=== PATIENT | female | born 1980 | race Caucasian/White ===

== ENCOUNTER 2019-07-11 06:01 | Inpatient (IN) | payer OTHER ==
[2019-07-11] MEDS ORDERED: ceFAZolin* 2 GM* ONE DOSE (Duplex) IVPB (07:00)
[2019-07-11] MEDS ORDERED: Carboprost Tromethamine* 250 MCG INJ ONE (07:24)
[2019-07-11] MEDS ORDERED: Sodium Citrate/Citric Acid* 15 ML UDC ONE (07:33)
[2019-07-11] MEDS ORDERED: Sterile Water for Inj* 10 ML ONE (07:55)
[2019-07-11] MEDS ORDERED: Morphine PF AMP (0.5MG/ML)* 5 MG/10 ML AMP ONE (07:55)
[2019-07-11] MEDS ORDERED: Witch Hazel PAD* JAR TOPICAL PRN (08:02)
[2019-07-11] MEDS ORDERED: Acetaminophen TAB* 325 MG PO PRN (08:02)
[2019-07-11] MEDS ORDERED: Glycerin ADULT SUPP PR PRN (08:02)
[2019-07-11] MEDS ORDERED: Zolpidem TAB* 5 MG PO PRN (08:02)
[2019-07-11] MEDS ORDERED: oxyCODONE/Acetamin 5/325 MG* TAB PO PRN ×3 (08:02→12:00)
[2019-07-11] MEDS ORDERED: Dibucaine 1% 28.35 GM TUBE PR PRN (08:02)
[2019-07-11] MEDS ORDERED: OXYTOCIN* 10 UNITS/ML 1 ML VIAL ONE (08:32)
[2019-07-11] MEDS ORDERED: Phenylephrine 40 MCG/ML SYRINGE ONE (08:32)
[2019-07-11] MEDS ORDERED: EPHEDrine (Pressors)* 50 MG/ML VIAL ONE (08:32)
[2019-07-11] MEDS ORDERED: Ketorolac INJ* 30 MG/ML 1 ML VIAL ONE (08:44)
[2019-07-11] MEDS ORDERED: Naloxone* 0.4 MG/ML 1 ML VIAL IV PRN ×3 (08:46→12:00)
[2019-07-11] MEDS ORDERED: fentaNYL* 50 MCG/ML 2 ML VIAL (100 MCG VIAL) IV PRN (08:46)
[2019-07-11] MEDS ORDERED: oxyCODONE TAB* 5 MG TAB PO PRN (08:46)
[2019-07-11] MEDS ORDERED: DiMENhydriNATE IV* 50 MG/ML VIAL IV PUSH PRN (08:46)
[2019-07-11] MEDS ORDERED: HYDROmorphone INJ* 0.5 MG/0.5 ML SYRINGE IV PRN (08:46)
[2019-07-11] MEDS ORDERED: Ondansetron INJ* 2 MG/ML VIAL IV PRN ×2 (08:46→12:00)
[2019-07-11] MEDS ORDERED: diPHENhydraMINE IV* 50 MG/ML 1 ml VIAL (BENADRYL) IV PRN ×2 (08:48→12:00)
[2019-07-11] MEDS ORDERED: Lactated Ringers 1000 ML Bag* 1,000 ML IV SCH (09:00)
[2019-07-11 09:09] LABS: Urine Benzodiazepine Screen None Detected (None Detect); Urine Opiates Screen None Detected (None Detect)
[2019-07-11] MEDS ORDERED: Methylergonovine INJ* 0.2 MG/ML 1ML AMP IM ONE (11:58)
[2019-07-11] MEDS ORDERED: Scopolamine 1.5 mg* PATCH TRANSDERM PRN (12:00)
[2019-07-11] MEDS: Simethicone TAB* 80 MG TAB.CHEW PO SCH ×4 (12:40→21:08)
--- NOTE | 2019-07-11 15:07 | OP ---
OPERATIVE REPORT: DATE OF OPERATION: 07/11/19 DATE OF : 78 SURGEON: Sonal Johnston MD SPACE OFFICER: Ortiz Toth MD ANESTHESIA: Spinal. PRE-OP DIAGNOSES: 1. Intrauterine gestation at 39 plus weeks gestational age. 2. Prior section x3. 3. Declines tubal ligation. POST-OP DIAGNOSES: 1. Intrauterine gestation at 39 plus weeks gestational age. 2. Prior section x3. 3. Declines tubal ligation. OPERATIVE PROCEDURE: Repeat lower transverse section. ESTIMATED BLOOD LOSS: 1 L. SPECIMENS: None. FLUIDS: Crystalloid. DRAINS: Galindo catheter with clear urine. FINDINGS: Male infant, weight 8 pounds 2 ounces, Apgars of 10 and 10. Normal- appearing uterus, ovaries, and tubes. Normal-appearing placenta. No intraperitoneal scarring. Moderate scarring between the skin and the peritoneum. DESCRIPTION OF PROCEDURE: After informed consent was signed, the patient was taken to the operating room where she was given spinal anesthesia that was found to be adequate. A Galindo catheter was introduced into her bladder and SCDs were placed on her legs. She was prepped and draped in the dorsal supine position with a leftward lift after a time-out was performed. A Pfannenstiel skin incision was made with a scalpel and carried down to the underlying layer of fascia with the scalpel. The fascia was incised on either side of the midline and the fascial incision extended laterally with a combination of sharp and blunt dissection. The inferior edge of the fascial incision was grasped with Cam clamps, tented up, and dissected down with a combination of sharp and blunt dissection. Then, the superior edge of the fascial incision was grasped with Cam clamps, tented up, and dissected down with a combination of sharp and blunt dissection. The rectus muscles were already partially . The scalpel was used to incise the peritoneum in the midline and it was then entered bluntly, and the peritoneal incision was extended laterally with blunt dissection. A bladder blade was inserted and a transverse incision was made in the lower uterine segment. Then, the uterine incision was extended superiorly and inferiorly with blunt pressure. The 's head was then delivered with fundal pressure followed by the rest of the body. The cord was milked towards the baby. The baby was very vigorous upon delivery. The cord was then clamped x2 and cut, and the baby was handed to the piece hand. Cord blood was collected. The placenta delivered with fundal massage and gentle cord traction and appeared intact. The uterus was cleared of clots and debris and exteriorized, was covered with a moist lap. The uterine incision was closed with 0 Vicryl in a running locked fashion with a second layer of suture imbricating the first. The uterus was initially boggy with improvement in tone after closure of the uterine incision; however, Methergine 0.2 mg was given IM to prevent further bleeding issues. The abdomen was irrigated. The uterus was placed back into the abdominal cavity. The peritoneum was closed with 3-0 Vicryl in a running unlocked fashion. The fascia was closed with 0 Vicryl in a running unlocked fashion. The current uterine incision had been made about a centimeter above 2 prior uterine incisions which had healed with a slight indentation. Therefore the skin under the old incisions was released using Bovie cautery. The skin incision was then closed with 4-0 Monocryl in a running subcuticular fashion. The incision was cleaned. Mastisol and Steri- Strips were placed. The dressing was placed. The patient was moved to the stretcher and taken to the recovery room in stable condition. [id number]/[facility] #: [id number] RAUL
[2019-07-11] MEDS: Docusate CAP* 100 MG PO SCH ×3 (16:33→21:02)
[2019-07-11] MEDS: Enoxaparin(*) 40 MG/0.4 ML SYR SUBCUT SCH (21:08)
[2019-07-12] MEDS: Ibuprofen TAB* 600 MG PO PRN ×3 (00:08→16:53)
[2019-07-12] MEDS ORDERED: Ammonia Inhalant* 1 EA AMP ONE (06:32)
[2019-07-12 06:59] LABS: ABS Lymphocytes 0.6 10^3/ul (1.0-4.8); ABS Monocytes 0.4 10^3/ul (0-0.8); ABS Neutrophils 7.3 10^3/ul (1.5-7.7); Eosinophil % 0.1 %; Hematocrit 22 % (35-47); Hemoglobin 7.5 g/dL (12.0-16.0); Mean Corpuscular HGB Conc 34 g/dL (31-36); Mean Corpuscular Hemoglobin 28 pg (27-31); Mean Corpuscular Volume 83 fL (80-97); Mean Platelet Volume 9.4 fL (7.4-10.4); Platelet Count 168 10^3/uL (150-450); Red Blood Count 2.67 10^6 /uL (3.70-4.87); Red Cell Distribution Width 15 % (10-15); White Blood Count 8.3 10^3/uL (3.5-10.8)
[2019-07-12] MEDS: Ferrous Gluconate TAB* 324 MG TAB PO SCH ×2 (08:20→20:18)
[2019-07-12] MEDS: Simethicone TAB* 80 MG TAB.CHEW PO SCH ×4 (08:21→20:18)
--- NOTE | 2019-07-12 10:59 | PN ---
Progress Note - Progress Note Date of Service: 07/12/19 Note: POST OPERATIVE/ PROGRESS NOTE S: POD#1 s/p rLTCS at term. Pt doing well. Galindo is out, voiding spontaneously. Tolerating regular diet. Pain is well controlled. Ambulating. Passing flatus. Denies any fever, chills, n/v, dizziness, lightheadedness, cp, sob. O: AVSS, afebrile Gen: nad, aaox3 CV: RRR Pulm: CTABL Abd: soft, nd, nttp, fundus firm below the U Incision: Bandage in place, clean and dry Ext:warm, nttp, negative homans A/P: 39 y/o POD#1 s/p rLTCS at 39w3d, complicated by hx of prior x 3, Protein S deficiency, post op anemia: - AVSS, afebrile, Hct is 22, pt is asymptomatic though with RRR, will re-check H/H in AM - Pain well controlled - continue PO regimen - Galindo out, voiding spontaneously - Protein S deficiency - s/p consult with heme/onc, per their recommendations - will give Lovenox daily while in house, low dose ASA x 6 weeks at time of discharge, no s/sx of DVT/PE at this time - Incision - OK for bandage to come off - RH+/Rubella Immune - Continue routine post-operative/ care DO LAKEISHA Catalan
[2019-07-12] MEDS: Docusate CAP* 100 MG PO SCH ×2 (12:38→20:15)
[2019-07-12] MEDS: Enoxaparin(*) 40 MG/0.4 ML SYR SUBCUT SCH (20:18)
[2019-07-13] MEDS: Ibuprofen TAB* 600 MG PO PRN ×2 (06:02→14:13)
[2019-07-13 07:44] VITALS: BP 104/62
[2019-07-13] MEDS: Ferrous Gluconate TAB* 324 MG TAB PO SCH (09:06)
[2019-07-13] MEDS: Simethicone TAB* 80 MG TAB.CHEW PO SCH (09:06)
[2019-07-13 10:05] LABS: Hematocrit 24 % (35-47); Hemoglobin 7.8 g/dL (12.0-16.0); Mean Corpuscular HGB Conc 33 g/dL (31-36); Mean Corpuscular Hemoglobin 28 pg (27-31); Mean Corpuscular Volume 84 fL (80-97); Mean Platelet Volume 9.2 fL (7.4-10.4); Platelet Count 219 10^3/uL (150-450); Red Blood Count 2.82 10^6 /uL (3.70-4.87); Red Cell Distribution Width 15 % (10-15); White Blood Count 8.1 10^3/uL (3.5-10.8)
[2019-07-14] MEDS ORDERED: Scopolamine PATCH Remove* 1 NOTE MISC PATCH OFF PRN (08:50)
== END 2019-07-13 16:30 | disposition home or self-care (01) | DRG 540 ==
LOC: MCHOB 06:01
PROVIDERS: ADMIT Obstetrics & Gynecology; ATTEND Obstetrics & Gynecology
PROC: 4A1HXCZ Monitoring of Products of Conception, Cardiac Rate, External Approach (ICD-10-PCS; 2019-07-11)
PROC: 10D00Z1 Extraction of Products of Conception, Low, Open Approach (ICD-10-PCS; principal; 2019-07-11 07:45)
DX: O34.211 Maternal care for low transverse scar from previous cesarean delivery (principal); O99.12 Other diseases of the blood and blood-forming organs and certain disorders involving the immune mechanism complicating childbirth; D68.59 Other primary thrombophilia; Z37.0 Single live birth; Z79.82 Long term (current) use of aspirin; Z91.040 Latex allergy status; Z3A.39 39 weeks gestation of pregnancy; O90.81 Anemia of the puerperium; Z79.01 Long term (current) use of anticoagulants
CPT/HCPCS: 36415; 80307; 85025; 85027; A9270-GY; J0690; J1240; J1650; J1885; J2590